=== PATIENT | female | born 1940 | race Caucasian/White ===

== ENCOUNTER → 2019-12-19 | Outpatient (CLI) | payer OTHER ==
[~2019-12-19] MED LIST: ANTIHISTAMINE PO; HYDCHL25 PO; LEVSOD75 PO; LISINOPRIL PO; LORA10ER PO; OMEP20ER PO; PRAV20 PO
== END | disposition home or self-care (01) ==
LOC: LAB 11:59 → LAB SHORT 11:59
DX: L08.0 Pyoderma (principal)
CPT/HCPCS: 87070; 87205

== ENCOUNTER 2020-06-13 10:15 | Emergency (ER) | payer OTHER ==
[~2020-06-13] VITALS: Ht 157.5 cm; Wt 71.7 kg
[2020-06-13 12:42] LABS: BASOPHILS ABSOLUTE AUTO 0.06 K/mm3 (0.00-0.23); BASOPHILS PERCENT AUTO 1 % (0-2); EOSINOPHILS ABSOLUTE AUTO 0.02 K/mm3 (0.00-0.68); EOSINOPHILS PERCENT AUTO 0 % (0-6); Hematocrit 39.9 % (33.0-51.0); Hemoglobin 13.5 g/dL (11.5-16.0); IMMATURE GRAN ABSOLUTE AUTO 0.02 K/mm3 (0.00-0.10); IMMATURE GRAN PERCENT AUTO 0 % (0-1); LYMPHOCYTES ABSOLUTE AUTO 1.75 K/mm3 (0.84-5.20); LYMPHOCYTES PERCENT AUTO 27 % (21-46); MONOCYTES ABSOLUTE AUTO 0.44 K/mm3 (0.16-1.47); MONOCYTES PERCENT AUTO 7 % (4-13); Mean Corpuscular HGB 33.5 pg (26.0-34.0); Mean Corpuscular HGB Conc 33.8 g/dL (31.5-36.5); Mean Corpuscular Volume 99 fL (80-100); NEUTROPHILS ABSOLUTE AUTO 4.26 K/mm3 (1.96-9.15); NEUTROPHILS PERCENT AUTO 65 % (41-73); Platelet Count 303 K/mm3 (150-400); RDW Coefficient Variation 11.5 % (11.7-14.2); RDW Standard Deviation 41.9 fL (35.1-46.3); Red Blood Cell Count 4.03 M/mm3 (3.80-5.20); White Blood Cell Count 6.55 K/mm3 (4.00-11.30)
[2020-06-13 12:59] LABS: Alanine Aminotransfer (ALT/SGP 24 U/L (12-78); Albumin, Blood 4.2 g/dL (3.4-5.0); Alk Phos 70 U/L (50-136); Anion Gap 6 mmol/L (6-16); Aspartate Aminotrans (AST/SGOT 22 U/L (12-37); Bilirubin, Total 0.6 mg/dL (0.1-1.0); Blood Urea Nitrogen 15 mg/dL (8-24); Bun/Creatinine Ratio 21.1 (12.0-20.0); CO2, Blood 29 mmol/L (21-32); Calcium, Blood 9.4 mg/dL (8.5-10.1); Chloride, Blood 101 mmol/L (98-108); Creatinine, Blood 0.71 mg/dL (0.40-1.00); Globulin, Blood 4.2 g/dL (2.2-4.0); Glomerular Filtration Rate >60 (60-); Glucose, Blood 95 mg/dL (70-99); Potassium, Blood 3.9 mmol/L (3.5-5.5); Sodium, Blood 136 mmol/L (136-145); Total Protein, Blood 8.4 g/dL (6.4-8.2)
[2020-06-13] MEDS ORDERED: MINOCYCLINE HC100 M2 PO (13:30)
== END 2020-06-13 13:55 | disposition home or self-care (01) ==
LOC: ER 10:15
PROVIDERS: Emergency Medicine
DX: L03.811 Cellulitis of head [any part, except face] (principal); I10 Essential (primary) hypertension; Z88.0 Allergy status to penicillin; Z79.899 Other long term (current) drug therapy
CPT/HCPCS: 36415; 70450; 80053; 85025; 87070; 87075; 87077; 87186; 87205; 99284-25; A9270

== ENCOUNTER → 2020-06-28 | Outpatient (CLI) | payer OTHER ==
[~2020-06-28] MED LIST changes: +MINOCYCLINE HC100 M2 PO
== END | disposition home or self-care (01) ==
LOC: LAB SHORT 12:50
DX: C44.42 Squamous cell carcinoma of skin of scalp and neck (principal)
CPT/HCPCS: 88305

== ENCOUNTER 2022-04-25 07:38 | Day surgery (SDC) | payer OTHER ==
[~2022-04-25 07:38] MED LIST changes: +LOSARTAN-HCTZ1 EAC5 PO
== END 2022-04-25 22:54 | disposition home or self-care (01) ==
LOC: WOUND 07:38
DX: C44.41 Basal cell carcinoma of skin of scalp and neck (principal); S01.00XA Unspecified open wound of scalp, initial encounter; X58.XXXA Exposure to other specified factors, initial encounter
CPT/HCPCS: G0463

== ENCOUNTER 2022-05-02 01:10 | Day surgery (SDC) | payer OTHER | END 2022-05-03 22:51 | disposition home or self-care (01) | LOC: WOUND 01:10 | DX: S01.00XA Unspecified open wound of scalp, initial encounter (principal); C44.41 Basal cell carcinoma of skin of scalp and neck; I10 Essential (primary) hypertension; E03.9 Hypothyroidism, unspecified | CPT/HCPCS: A9270; G0463 ==

== ENCOUNTER 2022-05-09 00:08 | Day surgery (SDC) | payer OTHER | END 2022-05-09 23:56 | disposition home or self-care (01) | LOC: WOUND 00:08 | DX: S01.00XA Unspecified open wound of scalp, initial encounter (principal); C44.41 Basal cell carcinoma of skin of scalp and neck; X58.XXXA Exposure to other specified factors, initial encounter | CPT/HCPCS: G0463 ==

== ENCOUNTER 2022-05-23 00:23 | Day surgery (SDC) | payer OTHER | END 2022-05-23 23:18 | disposition home or self-care (01) | LOC: WOUND 00:23 | DX: C44.41 Basal cell carcinoma of skin of scalp and neck (principal); S01.00XD Unspecified open wound of scalp, subsequent encounter; X58.XXXD Exposure to other specified factors, subsequent encounter; I10 Essential (primary) hypertension; E03.9 Hypothyroidism, unspecified | CPT/HCPCS: G0463 ==

== ENCOUNTER 2022-06-03 00:55 | Day surgery (SDC) | payer OTHER | END 2022-06-03 22:46 | disposition home or self-care (01) | LOC: WOUND 00:55 | DX: C44.41 Basal cell carcinoma of skin of scalp and neck (principal); S01.00XD Unspecified open wound of scalp, subsequent encounter; X58.XXXD Exposure to other specified factors, subsequent encounter | CPT/HCPCS: G0463 ==

== ENCOUNTER 2022-06-26 01:47 | Day surgery (SDC) | payer OTHER | END 2022-06-26 22:53 | disposition home or self-care (01) | LOC: WOUND 01:47 | DX: T81.89XA Other complications of procedures, not elsewhere classified, initial encounter (principal); L59.8 Other specified disorders of the skin and subcutaneous tissue related to radiation; C44.42 Squamous cell carcinoma of skin of scalp and neck | CPT/HCPCS: G0463 ==

== ENCOUNTER 2022-07-10 01:01 | Day surgery (SDC) | payer OTHER | END 2022-07-10 22:51 | disposition home or self-care (01) | LOC: WOUND 01:01 | DX: S01.00XD Unspecified open wound of scalp, subsequent encounter (principal); X58.XXXD Exposure to other specified factors, subsequent encounter; L59.8 Other specified disorders of the skin and subcutaneous tissue related to radiation; C44.42 Squamous cell carcinoma of skin of scalp and neck; I10 Essential (primary) hypertension; E03.9 Hypothyroidism, unspecified | CPT/HCPCS: G0463 ==

== ENCOUNTER 2022-07-14 00:27 | Day surgery (SDC) | payer OTHER | END 2022-07-14 23:04 | disposition home or self-care (01) | LOC: HBO 00:27 | DX: L59.8 Other specified disorders of the skin and subcutaneous tissue related to radiation (principal); S01.00XD Unspecified open wound of scalp, subsequent encounter; X58.XXXD Exposure to other specified factors, subsequent encounter; C44.42 Squamous cell carcinoma of skin of scalp and neck | CPT/HCPCS: G0277 ==

== ENCOUNTER 2022-07-16 02:16 | Day surgery (SDC) | payer OTHER | END 2022-07-16 23:33 | disposition home or self-care (01) | LOC: HBO 02:16 | DX: L59.8 Other specified disorders of the skin and subcutaneous tissue related to radiation (principal); S01.00XD Unspecified open wound of scalp, subsequent encounter; X58.XXXD Exposure to other specified factors, subsequent encounter; C44.42 Squamous cell carcinoma of skin of scalp and neck | CPT/HCPCS: G0277 ==

== ENCOUNTER 2022-07-17 02:33 | Day surgery (SDC) | payer OTHER | END 2022-07-17 23:23 | disposition home or self-care (01) | LOC: HBO 02:33 | DX: L59.8 Other specified disorders of the skin and subcutaneous tissue related to radiation (principal); S01.00XD Unspecified open wound of scalp, subsequent encounter; C44.42 Squamous cell carcinoma of skin of scalp and neck; X58.XXXD Exposure to other specified factors, subsequent encounter | CPT/HCPCS: G0277 ==

== ENCOUNTER 2022-07-17 02:42 | Day surgery (SDC) | payer OTHER | END 2022-07-17 23:23 | disposition home or self-care (01) | LOC: WOUND 02:42 | DX: L59.8 Other specified disorders of the skin and subcutaneous tissue related to radiation (principal); S01.00XD Unspecified open wound of scalp, subsequent encounter; C44.42 Squamous cell carcinoma of skin of scalp and neck | CPT/HCPCS: G0463 ==

== ENCOUNTER 2022-07-18 03:25 | Day surgery (SDC) | payer OTHER | END 2022-07-18 22:43 | disposition home or self-care (01) | LOC: HBO 03:25 | DX: L59.8 Other specified disorders of the skin and subcutaneous tissue related to radiation (principal); S01.00XD Unspecified open wound of scalp, subsequent encounter; C44.42 Squamous cell carcinoma of skin of scalp and neck; X58.XXXD Exposure to other specified factors, subsequent encounter | CPT/HCPCS: G0277 ==

== ENCOUNTER 2022-07-21 08:00 | Day surgery (SDC) | payer OTHER | END 2022-07-21 23:59 | disposition home or self-care (01) | LOC: HBO 08:00 | DX: L59.8 Other specified disorders of the skin and subcutaneous tissue related to radiation (principal); S01.00XD Unspecified open wound of scalp, subsequent encounter; C44.42 Squamous cell carcinoma of skin of scalp and neck; X58.XXXD Exposure to other specified factors, subsequent encounter | CPT/HCPCS: G0277 ==

== ENCOUNTER 2022-07-22 00:34 | Day surgery (SDC) | payer OTHER | END 2022-07-22 22:44 | disposition home or self-care (01) | LOC: HBO 00:34 | DX: L59.8 Other specified disorders of the skin and subcutaneous tissue related to radiation (principal); S01.00XD Unspecified open wound of scalp, subsequent encounter; X58.XXXD Exposure to other specified factors, subsequent encounter; C44.42 Squamous cell carcinoma of skin of scalp and neck | CPT/HCPCS: G0277 ==

== ENCOUNTER 2022-07-23 03:07 | Day surgery (SDC) | payer OTHER | END 2022-07-23 22:48 | disposition home or self-care (01) | LOC: HBO 03:07 | DX: L59.8 Other specified disorders of the skin and subcutaneous tissue related to radiation (principal); S01.00XD Unspecified open wound of scalp, subsequent encounter; X58.XXXD Exposure to other specified factors, subsequent encounter; C44.42 Squamous cell carcinoma of skin of scalp and neck | CPT/HCPCS: G0277 ==

== ENCOUNTER 2022-07-24 00:31 | Day surgery (SDC) | payer OTHER | END 2022-07-24 22:56 | disposition home or self-care (01) | LOC: HBO 00:31 | DX: L59.8 Other specified disorders of the skin and subcutaneous tissue related to radiation (principal); S01.00XD Unspecified open wound of scalp, subsequent encounter; X58.XXXD Exposure to other specified factors, subsequent encounter; C44.42 Squamous cell carcinoma of skin of scalp and neck | CPT/HCPCS: G0277; G0463 ==

== ENCOUNTER 2022-07-24 01:33 | Day surgery (SDC) | payer OTHER | END 2022-07-24 22:56 | disposition home or self-care (01) | LOC: WOUND 01:33 | DX: L59.8 Other specified disorders of the skin and subcutaneous tissue related to radiation (principal); S01.00XD Unspecified open wound of scalp, subsequent encounter; X58.XXXD Exposure to other specified factors, subsequent encounter; C44.42 Squamous cell carcinoma of skin of scalp and neck | CPT/HCPCS: G0463 ==

== ENCOUNTER 2022-07-28 02:09 | Day surgery (SDC) | payer OTHER | END 2022-07-28 22:53 | disposition home or self-care (01) | LOC: HBO 02:09 | DX: S01.00XD Unspecified open wound of scalp, subsequent encounter (principal); L59.8 Other specified disorders of the skin and subcutaneous tissue related to radiation; C44.42 Squamous cell carcinoma of skin of scalp and neck | CPT/HCPCS: G0277 ==

== ENCOUNTER 2022-07-29 01:55 | Day surgery (SDC) | payer OTHER | END 2022-07-29 22:56 | disposition home or self-care (01) | LOC: HBO 01:55 | DX: L59.8 Other specified disorders of the skin and subcutaneous tissue related to radiation (principal); S01.00XD Unspecified open wound of scalp, subsequent encounter; C44.42 Squamous cell carcinoma of skin of scalp and neck | CPT/HCPCS: G0277 ==

== ENCOUNTER 2022-07-30 05:39 | Day surgery (SDC) | payer OTHER | END 2022-07-30 23:09 | disposition home or self-care (01) | LOC: HBO 05:39 | PROC: 5A05221 Extracorporeal Hyperbaric Oxygenation, Continuous (ICD-10-PCS; principal; 2022-07-30) | DX: L59.8 Other specified disorders of the skin and subcutaneous tissue related to radiation (principal); S01.00XD Unspecified open wound of scalp, subsequent encounter; C44.42 Squamous cell carcinoma of skin of scalp and neck | CPT/HCPCS: G0277 ==

== ENCOUNTER 2022-07-31 01:29 | Day surgery (SDC) | payer OTHER | END 2022-07-31 23:07 | disposition home or self-care (01) | LOC: HBO 01:29 | DX: L59.8 Other specified disorders of the skin and subcutaneous tissue related to radiation (principal); S01.00XD Unspecified open wound of scalp, subsequent encounter; C44.42 Squamous cell carcinoma of skin of scalp and neck | CPT/HCPCS: G0277 ==

== ENCOUNTER 2022-08-01 00:39 | Day surgery (SDC) | payer OTHER | END 2022-08-02 22:42 | disposition home or self-care (01) | LOC: HBO 00:39 | DX: L59.8 Other specified disorders of the skin and subcutaneous tissue related to radiation (principal); S01.00XD Unspecified open wound of scalp, subsequent encounter; C44.42 Squamous cell carcinoma of skin of scalp and neck | CPT/HCPCS: G0277 ==

== ENCOUNTER 2022-08-05 02:36 | Day surgery (SDC) | payer OTHER | END 2022-08-05 23:06 | disposition home or self-care (01) | LOC: HBO 02:36 | DX: L59.8 Other specified disorders of the skin and subcutaneous tissue related to radiation (principal); S01.00XD Unspecified open wound of scalp, subsequent encounter; C44.42 Squamous cell carcinoma of skin of scalp and neck; X58.XXXD Exposure to other specified factors, subsequent encounter | CPT/HCPCS: G0277 ==

== ENCOUNTER 2022-08-06 00:21 | Day surgery (SDC) | payer OTHER | END 2022-08-06 23:11 | disposition home or self-care (01) | LOC: HBO 00:21 | DX: L59.8 Other specified disorders of the skin and subcutaneous tissue related to radiation (principal); S01.00XD Unspecified open wound of scalp, subsequent encounter; X58.XXXD Exposure to other specified factors, subsequent encounter; C44.42 Squamous cell carcinoma of skin of scalp and neck | CPT/HCPCS: G0277 ==

== ENCOUNTER 2022-08-06 00:32 | Day surgery (SDC) | payer OTHER | END 2022-08-06 23:11 | disposition home or self-care (01) | LOC: WOUND 00:32 | DX: L59.8 Other specified disorders of the skin and subcutaneous tissue related to radiation (principal); C44.42 Squamous cell carcinoma of skin of scalp and neck; S01.00XD Unspecified open wound of scalp, subsequent encounter; X58.XXXD Exposure to other specified factors, subsequent encounter | CPT/HCPCS: G0463 ==

== ENCOUNTER 2022-08-07 03:47 | Day surgery (SDC) | payer OTHER | END 2022-08-07 22:45 | disposition home or self-care (01) | LOC: HBO 03:47 | DX: L59.8 Other specified disorders of the skin and subcutaneous tissue related to radiation (principal); S01.00XD Unspecified open wound of scalp, subsequent encounter; X58.XXXD Exposure to other specified factors, subsequent encounter; C44.42 Squamous cell carcinoma of skin of scalp and neck | CPT/HCPCS: G0277 ==

== ENCOUNTER 2022-08-08 01:01 | Day surgery (SDC) | payer OTHER | END 2022-08-10 22:45 | disposition home or self-care (01) | LOC: HBO 01:01 | DX: L59.8 Other specified disorders of the skin and subcutaneous tissue related to radiation (principal); S01.00XD Unspecified open wound of scalp, subsequent encounter; X58.XXXD Exposure to other specified factors, subsequent encounter; C44.42 Squamous cell carcinoma of skin of scalp and neck | CPT/HCPCS: G0277 ==

== ENCOUNTER 2022-08-11 01:10 | Day surgery (SDC) | payer OTHER | END 2022-08-11 22:59 | disposition home or self-care (01) | LOC: HBO 01:10 | DX: L59.8 Other specified disorders of the skin and subcutaneous tissue related to radiation (principal); S01.00XD Unspecified open wound of scalp, subsequent encounter; C44.42 Squamous cell carcinoma of skin of scalp and neck; X58.XXXD Exposure to other specified factors, subsequent encounter | CPT/HCPCS: G0277 ==

== ENCOUNTER 2022-08-12 01:47 | Day surgery (SDC) | payer OTHER | END 2022-08-12 22:49 | disposition home or self-care (01) | LOC: HBO 01:47 | DX: L59.8 Other specified disorders of the skin and subcutaneous tissue related to radiation (principal); S01.00XD Unspecified open wound of scalp, subsequent encounter; C44.42 Squamous cell carcinoma of skin of scalp and neck | CPT/HCPCS: G0277 ==

== ENCOUNTER 2022-08-13 00:39 | Day surgery (SDC) | payer OTHER | END 2022-08-13 23:04 | disposition home or self-care (01) | LOC: WOUND 00:39 | DX: S01.00XD Unspecified open wound of scalp, subsequent encounter (principal); L59.8 Other specified disorders of the skin and subcutaneous tissue related to radiation; C44.42 Squamous cell carcinoma of skin of scalp and neck; X58.XXXD Exposure to other specified factors, subsequent encounter | CPT/HCPCS: G0463 ==

== ENCOUNTER 2022-08-13 00:41 | Day surgery (SDC) | payer OTHER | END 2022-08-13 23:04 | disposition home or self-care (01) | LOC: HBO 00:41 | DX: L59.8 Other specified disorders of the skin and subcutaneous tissue related to radiation (principal); S01.00XD Unspecified open wound of scalp, subsequent encounter; C44.42 Squamous cell carcinoma of skin of scalp and neck; X58.XXXD Exposure to other specified factors, subsequent encounter | CPT/HCPCS: G0277 ==

== ENCOUNTER 2022-08-14 02:37 | Day surgery (SDC) | payer OTHER | END 2022-08-14 23:38 | disposition home or self-care (01) | LOC: HBO 02:37 | PROC: 5A05121 Extracorporeal Hyperbaric Oxygenation, Intermittent (ICD-10-PCS; principal; 2022-08-14) | DX: L59.8 Other specified disorders of the skin and subcutaneous tissue related to radiation (principal); C44.42 Squamous cell carcinoma of skin of scalp and neck; S01.00XD Unspecified open wound of scalp, subsequent encounter | CPT/HCPCS: G0277 ==

== ENCOUNTER 2022-08-15 02:45 | Day surgery (SDC) | payer OTHER | END 2022-08-17 22:57 | disposition home or self-care (01) | LOC: HBO 02:45 | DX: L59.8 Other specified disorders of the skin and subcutaneous tissue related to radiation (principal); S01.00XD Unspecified open wound of scalp, subsequent encounter; X58.XXXD Exposure to other specified factors, subsequent encounter; C44.42 Squamous cell carcinoma of skin of scalp and neck | CPT/HCPCS: G0277 ==

== ENCOUNTER 2022-08-20 03:39 | Day surgery (SDC) | payer OTHER | END 2022-08-20 23:08 | disposition home or self-care (01) | LOC: HBO 03:39 | DX: L59.8 Other specified disorders of the skin and subcutaneous tissue related to radiation (principal); S01.00XD Unspecified open wound of scalp, subsequent encounter; X58.XXXD Exposure to other specified factors, subsequent encounter; C44.42 Squamous cell carcinoma of skin of scalp and neck | CPT/HCPCS: G0277 ==

== ENCOUNTER 2022-08-20 03:42 | Day surgery (SDC) | payer OTHER | END 2022-08-20 23:08 | disposition home or self-care (01) | LOC: WOUND 03:42 | DX: L59.8 Other specified disorders of the skin and subcutaneous tissue related to radiation (principal); S01.00XD Unspecified open wound of scalp, subsequent encounter; X58.XXXD Exposure to other specified factors, subsequent encounter; C44.42 Squamous cell carcinoma of skin of scalp and neck; I10 Essential (primary) hypertension; E03.9 Hypothyroidism, unspecified | CPT/HCPCS: G0463 ==

== ENCOUNTER 2022-08-26 03:18 | Day surgery (SDC) | payer OTHER | END 2022-08-26 22:42 | disposition home or self-care (01) | LOC: HBO 03:18 | DX: L59.8 Other specified disorders of the skin and subcutaneous tissue related to radiation (principal); S01.00XD Unspecified open wound of scalp, subsequent encounter; C44.42 Squamous cell carcinoma of skin of scalp and neck | CPT/HCPCS: G0277 ==

== ENCOUNTER 2022-08-27 03:13 | Day surgery (SDC) | payer OTHER | END 2022-08-27 22:48 | disposition home or self-care (01) | LOC: HBO 03:13 | DX: L59.8 Other specified disorders of the skin and subcutaneous tissue related to radiation (principal); S01.00XD Unspecified open wound of scalp, subsequent encounter; C44.42 Squamous cell carcinoma of skin of scalp and neck | CPT/HCPCS: G0277 ==

== ENCOUNTER 2022-08-28 03:26 | Day surgery (SDC) | payer OTHER | END 2022-08-28 22:44 | disposition home or self-care (01) | LOC: HBO 03:26 | DX: L59.8 Other specified disorders of the skin and subcutaneous tissue related to radiation (principal); S01.00XD Unspecified open wound of scalp, subsequent encounter; X58.XXXD Exposure to other specified factors, subsequent encounter; C44.42 Squamous cell carcinoma of skin of scalp and neck | CPT/HCPCS: G0277 ==

== ENCOUNTER 2022-08-28 07:45 | Day surgery (SDC) | payer OTHER | END 2022-08-28 22:44 | disposition home or self-care (01) | LOC: WOUND 07:45 | DX: L59.8 Other specified disorders of the skin and subcutaneous tissue related to radiation (principal); S01.00XD Unspecified open wound of scalp, subsequent encounter; X58.XXXD Exposure to other specified factors, subsequent encounter; C44.42 Squamous cell carcinoma of skin of scalp and neck | CPT/HCPCS: G0463 ==

== ENCOUNTER → 2022-08-29 | Day surgery (SDC) | payer OTHER | LOC: HBO 03:23 | DX: L59.8 Other specified disorders of the skin and subcutaneous tissue related to radiation (principal); S01.00XD Unspecified open wound of scalp, subsequent encounter; C44.42 Squamous cell carcinoma of skin of scalp and neck; X58.XXXD Exposure to other specified factors, subsequent encounter | CPT/HCPCS: G0277 ==

== ENCOUNTER → 2022-09-01 | Day surgery (SDC) | payer OTHER | LOC: HBO 02:02 | DX: L59.8 Other specified disorders of the skin and subcutaneous tissue related to radiation (principal); S01.00XD Unspecified open wound of scalp, subsequent encounter; C44.42 Squamous cell carcinoma of skin of scalp and neck; X58.XXXD Exposure to other specified factors, subsequent encounter | CPT/HCPCS: G0277 ==

== ENCOUNTER → 2022-09-02 | Day surgery (SDC) | payer OTHER | LOC: HBO 00:57 | DX: L59.8 Other specified disorders of the skin and subcutaneous tissue related to radiation (principal); S01.00XD Unspecified open wound of scalp, subsequent encounter; C44.42 Squamous cell carcinoma of skin of scalp and neck | CPT/HCPCS: G0277 ==

== ENCOUNTER → 2022-09-03 | Day surgery (SDC) | payer OTHER | LOC: HBO 03:08 | DX: L59.8 Other specified disorders of the skin and subcutaneous tissue related to radiation (principal); S01.00XD Unspecified open wound of scalp, subsequent encounter; C44.42 Squamous cell carcinoma of skin of scalp and neck; X58.XXXD Exposure to other specified factors, subsequent encounter | CPT/HCPCS: G0277 ==

== ENCOUNTER 2022-09-04 02:56 | Day surgery (SDC) | payer OTHER | END 2022-09-05 23:09 | disposition home or self-care (01) | LOC: HBO 02:56 | DX: L59.8 Other specified disorders of the skin and subcutaneous tissue related to radiation (principal); S01.00XD Unspecified open wound of scalp, subsequent encounter; X58.XXXD Exposure to other specified factors, subsequent encounter; C44.42 Squamous cell carcinoma of skin of scalp and neck | CPT/HCPCS: G0277 ==

== ENCOUNTER 2022-09-05 01:04 | Day surgery (SDC) | payer OTHER | END 2022-09-05 23:10 | disposition home or self-care (01) | LOC: HBO 01:04 | DX: S01.00XD Unspecified open wound of scalp, subsequent encounter (principal); L59.8 Other specified disorders of the skin and subcutaneous tissue related to radiation; C44.42 Squamous cell carcinoma of skin of scalp and neck | CPT/HCPCS: G0277 ==

== ENCOUNTER 2022-09-16 02:14 | Day surgery (SDC) | payer OTHER | END 2022-09-16 22:41 | disposition home or self-care (01) | LOC: HBO 02:14 | DX: L59.8 Other specified disorders of the skin and subcutaneous tissue related to radiation (principal); S01.00XD Unspecified open wound of scalp, subsequent encounter; C44.42 Squamous cell carcinoma of skin of scalp and neck | CPT/HCPCS: G0277 ==

== ENCOUNTER 2022-09-18 02:34 | Day surgery (SDC) | payer OTHER | END 2022-09-18 22:48 | disposition home or self-care (01) | LOC: WOUND 02:34 | DX: T81.31XA Disruption of external operation (surgical) wound, not elsewhere classified, initial encounter (principal); C44.42 Squamous cell carcinoma of skin of scalp and neck; I10 Essential (primary) hypertension; E03.9 Hypothyroidism, unspecified; Y83.8 Other surgical procedures as the cause of abnormal reaction of the patient, or of later complication, without mention of misadventure at the time of the procedure ==

== ENCOUNTER 2022-09-24 04:29 | Day surgery (SDC) | payer OTHER | END 2022-09-24 22:46 | disposition home or self-care (01) | LOC: HBO 04:29 | DX: L59.8 Other specified disorders of the skin and subcutaneous tissue related to radiation (principal); S01.00XD Unspecified open wound of scalp, subsequent encounter; C44.42 Squamous cell carcinoma of skin of scalp and neck; X58.XXXD Exposure to other specified factors, subsequent encounter | CPT/HCPCS: G0277 ==

== ENCOUNTER 2022-09-25 01:30 | Day surgery (SDC) | payer OTHER | END 2022-09-25 23:02 | disposition home or self-care (01) | LOC: WOUND 01:30 | DX: C44.42 Squamous cell carcinoma of skin of scalp and neck (principal); S01.00XD Unspecified open wound of scalp, subsequent encounter; L59.8 Other specified disorders of the skin and subcutaneous tissue related to radiation; X58.XXXD Exposure to other specified factors, subsequent encounter | CPT/HCPCS: G0463 ==

== ENCOUNTER 2022-09-25 01:31 | Day surgery (SDC) | payer OTHER | END 2022-09-25 23:05 | disposition home or self-care (01) | LOC: HBO 01:31 | DX: L59.8 Other specified disorders of the skin and subcutaneous tissue related to radiation (principal); S01.00XD Unspecified open wound of scalp, subsequent encounter; C44.42 Squamous cell carcinoma of skin of scalp and neck; X58.XXXD Exposure to other specified factors, subsequent encounter | CPT/HCPCS: G0277; G0463 ==

== ENCOUNTER 2022-09-26 00:55 | Day surgery (SDC) | payer OTHER | END 2022-09-26 22:44 | disposition home or self-care (01) | LOC: HBO 00:55 | DX: L59.8 Other specified disorders of the skin and subcutaneous tissue related to radiation (principal); S01.00XD Unspecified open wound of scalp, subsequent encounter; C44.42 Squamous cell carcinoma of skin of scalp and neck; X58.XXXD Exposure to other specified factors, subsequent encounter | CPT/HCPCS: G0277 ==

== ENCOUNTER 2022-09-29 00:37 | Day surgery (SDC) | payer OTHER | END 2022-09-29 23:05 | disposition home or self-care (01) | LOC: HBO 00:37 → WOUND 13:38 → HBO 13:52 | DX: L59.8 Other specified disorders of the skin and subcutaneous tissue related to radiation (principal); S01.00XD Unspecified open wound of scalp, subsequent encounter; C44.42 Squamous cell carcinoma of skin of scalp and neck; X58.XXXD Exposure to other specified factors, subsequent encounter | CPT/HCPCS: G0277 ==

== ENCOUNTER 2022-09-30 03:02 | Day surgery (SDC) | payer OTHER | END 2022-09-30 22:50 | disposition home or self-care (01) | LOC: HBO 03:02 | DX: L59.8 Other specified disorders of the skin and subcutaneous tissue related to radiation (principal); S01.00XD Unspecified open wound of scalp, subsequent encounter; C44.42 Squamous cell carcinoma of skin of scalp and neck | CPT/HCPCS: G0277 ==

== ENCOUNTER 2022-10-06 00:23 | Day surgery (SDC) | payer OTHER | END 2022-10-06 23:12 | disposition home or self-care (01) | LOC: HBO 00:23 | DX: L59.8 Other specified disorders of the skin and subcutaneous tissue related to radiation (principal); S01.00XD Unspecified open wound of scalp, subsequent encounter; C44.42 Squamous cell carcinoma of skin of scalp and neck; X58.XXXD Exposure to other specified factors, subsequent encounter | CPT/HCPCS: G0277 ==

== ENCOUNTER 2022-10-08 04:04 | Day surgery (SDC) | payer OTHER | END 2022-10-08 23:07 | disposition home or self-care (01) | LOC: HBO 04:04 | DX: L59.8 Other specified disorders of the skin and subcutaneous tissue related to radiation (principal); S01.00XD Unspecified open wound of scalp, subsequent encounter; C44.42 Squamous cell carcinoma of skin of scalp and neck | CPT/HCPCS: G0277 ==

== ENCOUNTER 2022-10-09 03:06 | Day surgery (SDC) | payer OTHER | END 2022-10-09 22:52 | disposition home or self-care (01) | LOC: WOUND 03:06 | DX: L59.8 Other specified disorders of the skin and subcutaneous tissue related to radiation (principal); S01.00XD Unspecified open wound of scalp, subsequent encounter; X58.XXXD Exposure to other specified factors, subsequent encounter; C44.42 Squamous cell carcinoma of skin of scalp and neck | CPT/HCPCS: G0463 ==

== ENCOUNTER 2022-10-09 03:07 | Day surgery (SDC) | payer OTHER | END 2022-10-09 22:52 | disposition home or self-care (01) | LOC: HBO 03:07 | DX: L59.8 Other specified disorders of the skin and subcutaneous tissue related to radiation (principal); S01.00XD Unspecified open wound of scalp, subsequent encounter; X58.XXXD Exposure to other specified factors, subsequent encounter; C44.42 Squamous cell carcinoma of skin of scalp and neck | CPT/HCPCS: G0277 ==

== ENCOUNTER 2022-10-14 02:56 | Day surgery (SDC) | payer OTHER | END 2022-10-14 23:21 | disposition home or self-care (01) | LOC: HBO 02:56 | DX: L59.8 Other specified disorders of the skin and subcutaneous tissue related to radiation (principal); S01.00XD Unspecified open wound of scalp, subsequent encounter; C44.42 Squamous cell carcinoma of skin of scalp and neck | CPT/HCPCS: G0277 ==

== ENCOUNTER 2022-10-15 01:18 | Day surgery (SDC) | payer OTHER | END 2022-10-15 23:19 | disposition home or self-care (01) | LOC: HBO 01:18 | DX: L59.8 Other specified disorders of the skin and subcutaneous tissue related to radiation (principal); S01.00XD Unspecified open wound of scalp, subsequent encounter; C44.42 Squamous cell carcinoma of skin of scalp and neck | CPT/HCPCS: G0277 ==

== ENCOUNTER 2022-10-16 04:05 | Day surgery (SDC) | payer OTHER | END 2022-10-16 23:04 | disposition home or self-care (01) | LOC: HBO 04:05 | DX: L59.8 Other specified disorders of the skin and subcutaneous tissue related to radiation (principal); S01.00XD Unspecified open wound of scalp, subsequent encounter; C44.42 Squamous cell carcinoma of skin of scalp and neck | CPT/HCPCS: G0277 ==

== ENCOUNTER 2022-10-17 03:08 | Day surgery (SDC) | payer OTHER | END 2022-10-17 22:50 | disposition home or self-care (01) | LOC: HBO 03:08 | DX: L59.8 Other specified disorders of the skin and subcutaneous tissue related to radiation (principal); S01.00XD Unspecified open wound of scalp, subsequent encounter; C44.42 Squamous cell carcinoma of skin of scalp and neck | CPT/HCPCS: G0277 ==

== ENCOUNTER 2022-10-20 02:14 | Day surgery (SDC) | payer OTHER | END 2022-10-20 23:02 | disposition home or self-care (01) | LOC: HBO 02:14 | DX: L59.8 Other specified disorders of the skin and subcutaneous tissue related to radiation (principal); S01.00XD Unspecified open wound of scalp, subsequent encounter; X58.XXXD Exposure to other specified factors, subsequent encounter; C44.42 Squamous cell carcinoma of skin of scalp and neck; I10 Essential (primary) hypertension; E03.9 Hypothyroidism, unspecified | CPT/HCPCS: G0277 ==

== ENCOUNTER 2022-10-20 02:16 | Day surgery (SDC) | payer OTHER | END 2022-10-20 23:02 | disposition home or self-care (01) | LOC: WOUND 02:16 | DX: L59.8 Other specified disorders of the skin and subcutaneous tissue related to radiation (principal); S01.00XD Unspecified open wound of scalp, subsequent encounter; X58.XXXD Exposure to other specified factors, subsequent encounter; C44.42 Squamous cell carcinoma of skin of scalp and neck; I10 Essential (primary) hypertension; E03.9 Hypothyroidism, unspecified | CPT/HCPCS: G0463 ==

== ENCOUNTER 2022-10-22 02:11 | Day surgery (SDC) | payer OTHER | END 2022-10-22 22:57 | disposition home or self-care (01) | LOC: HBO 02:11 | DX: L59.8 Other specified disorders of the skin and subcutaneous tissue related to radiation (principal); S01.00XD Unspecified open wound of scalp, subsequent encounter; X58.XXXD Exposure to other specified factors, subsequent encounter; C44.42 Squamous cell carcinoma of skin of scalp and neck | CPT/HCPCS: G0277 ==

== ENCOUNTER 2022-10-23 02:33 | Day surgery (SDC) | payer OTHER | END 2022-10-23 23:43 | disposition home or self-care (01) | LOC: HBO 02:33 | DX: L59.8 Other specified disorders of the skin and subcutaneous tissue related to radiation (principal); S01.00XD Unspecified open wound of scalp, subsequent encounter; X58.XXXD Exposure to other specified factors, subsequent encounter; C44.42 Squamous cell carcinoma of skin of scalp and neck | CPT/HCPCS: G0277 ==

== ENCOUNTER 2022-10-24 01:13 | Day surgery (SDC) | payer OTHER | END 2022-10-24 23:15 | disposition home or self-care (01) | LOC: HBO 01:13 | DX: L59.8 Other specified disorders of the skin and subcutaneous tissue related to radiation (principal); S01.00XD Unspecified open wound of scalp, subsequent encounter; C44.42 Squamous cell carcinoma of skin of scalp and neck | CPT/HCPCS: G0277 ==

== ENCOUNTER 2022-10-27 01:59 | Day surgery (SDC) | payer OTHER | END 2022-10-27 22:44 | disposition home or self-care (01) | LOC: HBO 01:59 | DX: L59.8 Other specified disorders of the skin and subcutaneous tissue related to radiation (principal); S01.00XD Unspecified open wound of scalp, subsequent encounter; C44.42 Squamous cell carcinoma of skin of scalp and neck | CPT/HCPCS: G0277 ==

== ENCOUNTER 2022-10-28 01:55 | Day surgery (SDC) | payer OTHER | END 2022-10-28 22:43 | disposition home or self-care (01) | LOC: HBO 01:55 | DX: L59.8 Other specified disorders of the skin and subcutaneous tissue related to radiation (principal); S01.00XD Unspecified open wound of scalp, subsequent encounter; C44.42 Squamous cell carcinoma of skin of scalp and neck | CPT/HCPCS: G0277 ==

== ENCOUNTER 2022-10-29 02:18 | Day surgery (SDC) | payer OTHER | END 2022-10-29 23:10 | disposition home or self-care (01) | LOC: HBO 02:18 | DX: L59.8 Other specified disorders of the skin and subcutaneous tissue related to radiation (principal); S01.00XD Unspecified open wound of scalp, subsequent encounter; C44.42 Squamous cell carcinoma of skin of scalp and neck | CPT/HCPCS: G0277 ==

== ENCOUNTER 2022-10-30 01:06 | Day surgery (SDC) | payer OTHER | END 2022-10-30 23:09 | disposition home or self-care (01) | LOC: HBO 01:06 | DX: L59.8 Other specified disorders of the skin and subcutaneous tissue related to radiation (principal); S01.00XD Unspecified open wound of scalp, subsequent encounter; X58.XXXD Exposure to other specified factors, subsequent encounter; C44.42 Squamous cell carcinoma of skin of scalp and neck | CPT/HCPCS: G0277 ==

== ENCOUNTER 2022-10-31 00:54 | Day surgery (SDC) | payer OTHER | END 2022-10-31 22:55 | disposition home or self-care (01) | LOC: HBO 00:54 | DX: L59.8 Other specified disorders of the skin and subcutaneous tissue related to radiation (principal); S01.00XD Unspecified open wound of scalp, subsequent encounter; C44.42 Squamous cell carcinoma of skin of scalp and neck | CPT/HCPCS: G0277 ==

== ENCOUNTER 2022-11-03 08:00 | Day surgery (SDC) | payer OTHER | END 2022-11-03 23:59 | disposition home or self-care (01) | LOC: HBO 08:00 | DX: L59.8 Other specified disorders of the skin and subcutaneous tissue related to radiation (principal); S01.00XD Unspecified open wound of scalp, subsequent encounter; C44.42 Squamous cell carcinoma of skin of scalp and neck | CPT/HCPCS: G0277 ==

== ENCOUNTER 2022-11-04 01:40 | Day surgery (SDC) | payer OTHER | END 2022-11-04 23:02 | disposition home or self-care (01) | LOC: HBO 01:40 | DX: L59.8 Other specified disorders of the skin and subcutaneous tissue related to radiation (principal); S01.00XD Unspecified open wound of scalp, subsequent encounter; C44.42 Squamous cell carcinoma of skin of scalp and neck | CPT/HCPCS: G0277 ==

== ENCOUNTER 2022-11-05 05:40 | Day surgery (SDC) | payer OTHER | END 2022-11-05 22:47 | disposition home or self-care (01) | LOC: HBO 05:40 | DX: L59.8 Other specified disorders of the skin and subcutaneous tissue related to radiation (principal); S01.00XD Unspecified open wound of scalp, subsequent encounter; C44.42 Squamous cell carcinoma of skin of scalp and neck | CPT/HCPCS: G0277 ==

== ENCOUNTER 2022-11-06 03:43 | Day surgery (SDC) | payer OTHER | END 2022-11-06 23:21 | disposition home or self-care (01) | LOC: HBO 03:43 | DX: L59.8 Other specified disorders of the skin and subcutaneous tissue related to radiation (principal); S01.00XD Unspecified open wound of scalp, subsequent encounter; X58.XXXD Exposure to other specified factors, subsequent encounter; C44.42 Squamous cell carcinoma of skin of scalp and neck | CPT/HCPCS: G0277 ==

== ENCOUNTER 2022-11-07 02:22 | Day surgery (SDC) | payer OTHER | END 2022-11-07 23:33 | disposition home or self-care (01) | LOC: HBO 02:22 | DX: L59.8 Other specified disorders of the skin and subcutaneous tissue related to radiation (principal); S01.00XD Unspecified open wound of scalp, subsequent encounter; C44.42 Squamous cell carcinoma of skin of scalp and neck | CPT/HCPCS: G0277 ==

== ENCOUNTER 2022-11-10 00:39 | Day surgery (SDC) | payer OTHER | END 2022-11-10 22:49 | disposition home or self-care (01) | LOC: HBO 00:39 → WOUND 13:59 → HBO 22:49 | DX: L59.8 Other specified disorders of the skin and subcutaneous tissue related to radiation (principal); S01.00XD Unspecified open wound of scalp, subsequent encounter; C44.42 Squamous cell carcinoma of skin of scalp and neck | CPT/HCPCS: G0277; G0463 ==

== ENCOUNTER 2022-11-10 00:43 | Day surgery (SDC) | payer OTHER | END 2022-11-10 22:50 | disposition home or self-care (01) | LOC: WOUND 00:43 | DX: L59.8 Other specified disorders of the skin and subcutaneous tissue related to radiation (principal); S01.00XD Unspecified open wound of scalp, subsequent encounter; C44.42 Squamous cell carcinoma of skin of scalp and neck | CPT/HCPCS: G0463 ==

== ENCOUNTER 2022-11-11 02:15 | Day surgery (SDC) | payer OTHER | END 2022-11-11 22:36 | disposition home or self-care (01) | LOC: HBO 02:15 | DX: L59.8 Other specified disorders of the skin and subcutaneous tissue related to radiation (principal); S01.00XD Unspecified open wound of scalp, subsequent encounter; C44.42 Squamous cell carcinoma of skin of scalp and neck | CPT/HCPCS: G0277 ==

== ENCOUNTER 2022-11-12 02:43 | Day surgery (SDC) | payer OTHER | END 2022-11-12 22:56 | disposition home or self-care (01) | LOC: HBO 02:43 | DX: L59.8 Other specified disorders of the skin and subcutaneous tissue related to radiation (principal); S01.00XD Unspecified open wound of scalp, subsequent encounter; C44.42 Squamous cell carcinoma of skin of scalp and neck | CPT/HCPCS: G0277 ==

== ENCOUNTER 2022-11-13 07:38 | Day surgery (SDC) | payer OTHER | END 2022-11-13 22:51 | disposition home or self-care (01) | LOC: HBO 07:38 | DX: L59.8 Other specified disorders of the skin and subcutaneous tissue related to radiation (principal); S01.00XD Unspecified open wound of scalp, subsequent encounter; C44.42 Squamous cell carcinoma of skin of scalp and neck | CPT/HCPCS: G0277 ==

== ENCOUNTER 2022-12-04 01:38 | Day surgery (SDC) | payer OTHER | END 2022-12-04 22:55 | disposition home or self-care (01) | LOC: WOUND 01:38 | DX: L59.8 Other specified disorders of the skin and subcutaneous tissue related to radiation (principal); S01.00XD Unspecified open wound of scalp, subsequent encounter; X58.XXXD Exposure to other specified factors, subsequent encounter; C44.42 Squamous cell carcinoma of skin of scalp and neck; I10 Essential (primary) hypertension; E03.9 Hypothyroidism, unspecified | CPT/HCPCS: G0463 ==

== ENCOUNTER 2023-01-08 03:21 | Day surgery (SDC) | payer OTHER | END 2023-01-08 22:45 | disposition home or self-care (01) | LOC: WOUND 03:21 | DX: S01.00XD Unspecified open wound of scalp, subsequent encounter (principal); L59.8 Other specified disorders of the skin and subcutaneous tissue related to radiation; C44.42 Squamous cell carcinoma of skin of scalp and neck | CPT/HCPCS: G0463 ==

== ENCOUNTER 2023-02-05 02:03 | Day surgery (SDC) | payer OTHER | END 2023-02-05 22:53 | disposition home or self-care (01) | LOC: WOUND 02:03 | DX: L59.8 Other specified disorders of the skin and subcutaneous tissue related to radiation (principal); S01.00XD Unspecified open wound of scalp, subsequent encounter; X58.XXXD Exposure to other specified factors, subsequent encounter; C44.42 Squamous cell carcinoma of skin of scalp and neck | CPT/HCPCS: G0463 ==

== ENCOUNTER 2023-03-12 04:51 | Day surgery (SDC) | payer OTHER | END 2023-03-12 23:09 | disposition home or self-care (01) | LOC: WOUND 04:51 | DX: L59.8 Other specified disorders of the skin and subcutaneous tissue related to radiation (principal); S01.00XD Unspecified open wound of scalp, subsequent encounter; X58.XXXD Exposure to other specified factors, subsequent encounter; C44.42 Squamous cell carcinoma of skin of scalp and neck; I10 Essential (primary) hypertension; E03.9 Hypothyroidism, unspecified | CPT/HCPCS: G0463 ==

== ENCOUNTER 2023-04-09 02:06 | Day surgery (SDC) | payer OTHER | END 2023-04-09 23:05 | disposition home or self-care (01) | LOC: WOUND 02:06 | DX: L59.8 Other specified disorders of the skin and subcutaneous tissue related to radiation (principal); S01.00XD Unspecified open wound of scalp, subsequent encounter; C44.42 Squamous cell carcinoma of skin of scalp and neck | CPT/HCPCS: G0463 ==

== ENCOUNTER 2023-05-14 03:06 | Day surgery (SDC) | payer OTHER | END 2023-05-14 22:48 | disposition home or self-care (01) | LOC: WOUND 03:06 | DX: C44.42 Squamous cell carcinoma of skin of scalp and neck (principal); L59.8 Other specified disorders of the skin and subcutaneous tissue related to radiation; S01.00XD Unspecified open wound of scalp, subsequent encounter; X58.XXXD Exposure to other specified factors, subsequent encounter | CPT/HCPCS: G0463 ==

== ENCOUNTER 2023-07-15 03:31 | Day surgery (SDC) | payer OTHER | END 2023-07-15 23:02 | disposition home or self-care (01) | LOC: WOUND 03:31 | DX: S01.00XD Unspecified open wound of scalp, subsequent encounter (principal); C44.42 Squamous cell carcinoma of skin of scalp and neck; L59.8 Other specified disorders of the skin and subcutaneous tissue related to radiation; X58.XXXD Exposure to other specified factors, subsequent encounter | CPT/HCPCS: G0463 ==

== ENCOUNTER 2023-09-16 02:58 | Day surgery (SDC) | payer OTHER | END 2023-09-16 22:52 | disposition home or self-care (01) | LOC: WOUND 02:58 | DX: L59.8 Other specified disorders of the skin and subcutaneous tissue related to radiation (principal); S01.00XD Unspecified open wound of scalp, subsequent encounter; X58.XXXD Exposure to other specified factors, subsequent encounter; C44.42 Squamous cell carcinoma of skin of scalp and neck; I10 Essential (primary) hypertension; E03.9 Hypothyroidism, unspecified | CPT/HCPCS: G0463 ==

== ENCOUNTER 2023-10-08 06:47 | Day surgery (SDC) | payer OTHER ==
[~2023-10-08] VITALS: Ht 157.5 cm; Wt 70.6 kg
[~2023-10-08 06:47] MED LIST changes: +Balanced Salt Epinephrine Irrigation Solution 500 mL IR SCH; +Lidocaine HCl/Pf 1% 5 ML VIAL ONE; +Moxifloxacin HCL 0.5 MG/0.1 ML 0.4MLSYR RIGHTEYE SCH; +NS 500 ML IV ONE; +PHENYLEPHRINE\\TROPICAMIDE\\TETRACAINE OPHTHALMIC DILATING SOLN RIGHTEYE PRN; +Povidone-Iodine 450 DROP/30 ML Solution RIGHTEYE SCH; +Triamcinolone Inj Susp 40 MG / ML 1ML Vial ONE
[2023-10-08] MEDS ORDERED: OLMESARTAN-HCT1 EAC5 PO (07:04)
[2023-10-08] MEDS ORDERED: OSTEO BI FLEX (07:05)
[2023-10-08] MEDS ORDERED: KRILL OIL (07:05)
[2023-10-08] MEDS ORDERED: CENTRUM SILVER1 EAC2 PO (07:05)
[2023-10-08] MEDS ORDERED: LORA10ER PO (07:05)
[2023-10-08] MEDS ORDERED: VITAMIN D3 (07:06)
[2023-10-08] MEDS ORDERED: Calcium Carbon500 MG (07:07)
[2023-10-08] MEDS ORDERED: NS 500 ML IV ONE (07:17)
--- NOTE | 2023-10-08 07:17 | NUR ---
10/08/23 0717 Kavita Cheema AT 0706 PLEDGET AT 0709
[2023-10-08] MEDS ORDERED: Midazolam HCl 1MG / ML 2ML Vial ONE (07:56)
[2023-10-08 08:26] VITALS: BP 133/60
== END 2023-10-08 08:48 | disposition home or self-care (01) ==
LOC: ORSCSDS 06:47
PROVIDERS: Ophthalmology
PROC: 08RJ3JZ Replacement of Right Lens with Synthetic Substitute, Percutaneous Approach (ICD-10-PCS; principal; 2023-10-08 08:00)
DX: H25.811 Combined forms of age-related cataract, right eye (principal); I10 Essential (primary) hypertension; E78.00 Pure hypercholesterolemia, unspecified; Z79.899 Other long term (current) drug therapy
CPT/HCPCS: J2001; J2250; J3301; J7040; V2632

== ENCOUNTER 2023-10-15 07:05 | Day surgery (SDC) | payer OTHER ==
[~2023-10-15] VITALS: Ht 157.5 cm; Wt 71.0 kg
[~2023-10-15 07:05] MED LIST changes: +CENTRUM SILVER1 EAC2 PO; +Calcium Carbon500 MG; +KRILL OIL; -Lidocaine HCl/Pf 1% 5 ML VIAL ONE; +Lidocaine HCl/Pf 1% 5 ML VIAL XX SCH; +Moxifloxacin HCL 0.5 MG/0.1 ML 0.4MLSYR LEFTEYE SCH; -Moxifloxacin HCL 0.5 MG/0.1 ML 0.4MLSYR RIGHTEYE SCH; +OLMESARTAN-HCT1 EAC5 PO; +OSTEO BI FLEX; +PHENYLEPHRINE\\TROPICAMIDE\\TETRACAINE OPHTHALMIC DILATING SOLN LEFTEYE PRN; -PHENYLEPHRINE\\TROPICAMIDE\\TETRACAINE OPHTHALMIC DILATING SOLN RIGHTEYE PRN; +Povidone-Iodine 450 DROP/30 ML Solution LEFTEYE SCH; -Povidone-Iodine 450 DROP/30 ML Solution RIGHTEYE SCH; +Triamcinolone Inj Susp 40 MG / ML 1ML Vial INJ SCH; -Triamcinolone Inj Susp 40 MG / ML 1ML Vial ONE; +VITAMIN D3
[2023-10-15] MEDS ORDERED: NS 500 ML IV ONE (07:26)
[2023-10-15] MEDS ORDERED: FentaNYL Citrate 50 MCG/ML 2 ML Injection ONE (08:11)
[2023-10-15] MEDS ORDERED: Midazolam HCl 1MG / ML 2ML Vial ONE (08:11)
[2023-10-15 08:54] VITALS: BP 146/59
== END 2023-10-15 09:10 | disposition home or self-care (01) ==
LOC: ORSCSDS 07:05
PROVIDERS: Ophthalmology
PROC: 08RK3JZ Replacement of Left Lens with Synthetic Substitute, Percutaneous Approach (ICD-10-PCS; principal; 2023-10-15 08:30)
DX: H25.812 Combined forms of age-related cataract, left eye (principal); Z96.1 Presence of intraocular lens; I10 Essential (primary) hypertension; E78.00 Pure hypercholesterolemia, unspecified; Z79.899 Other long term (current) drug therapy
CPT/HCPCS: J2250; J3010; J7040; V2632

== ENCOUNTER 2023-11-19 02:12 | Day surgery (SDC) | payer OTHER ==
[~2023-11-19 02:12] MED LIST changes: -Balanced Salt Epinephrine Irrigation Solution 500 mL IR SCH; -Lidocaine HCl/Pf 1% 5 ML VIAL XX SCH; -Moxifloxacin HCL 0.5 MG/0.1 ML 0.4MLSYR LEFTEYE SCH; -NS 500 ML IV ONE; -PHENYLEPHRINE\\TROPICAMIDE\\TETRACAINE OPHTHALMIC DILATING SOLN LEFTEYE PRN; -Povidone-Iodine 450 DROP/30 ML Solution LEFTEYE SCH; -Triamcinolone Inj Susp 40 MG / ML 1ML Vial INJ SCH
== END 2023-11-19 22:52 | disposition home or self-care (01) ==
LOC: WOUND 02:12
DX: S01.00XD Unspecified open wound of scalp, subsequent encounter (principal); L59.8 Other specified disorders of the skin and subcutaneous tissue related to radiation; C44.42 Squamous cell carcinoma of skin of scalp and neck; I10 Essential (primary) hypertension; E03.9 Hypothyroidism, unspecified; X58.XXXD Exposure to other specified factors, subsequent encounter
CPT/HCPCS: G0463

== ENCOUNTER 2023-12-24 02:06 | Day surgery (SDC) | payer OTHER | END 2023-12-24 23:00 | disposition home or self-care (01) | LOC: WOUND 02:06 | DX: C44.42 Squamous cell carcinoma of skin of scalp and neck (principal); L59.8 Other specified disorders of the skin and subcutaneous tissue related to radiation; S01.00XA Unspecified open wound of scalp, initial encounter; X58.XXXA Exposure to other specified factors, initial encounter; I10 Essential (primary) hypertension; E03.9 Hypothyroidism, unspecified | CPT/HCPCS: 87070; 87205; G0463 ==

== ENCOUNTER 2023-12-29 13:29 | Emergency (ER) | payer OTHER ==
[~2023-12-29] VITALS: Ht 154.9 cm; Wt 70.3 kg
[2023-12-29 13:52] VITALS: BP 154/80
[2023-12-29 14:46] LABS: BASOPHILS ABSOLUTE AUTO 0.05 K/mm3 (0.00-0.23); BASOPHILS PERCENT AUTO 1 % (0-2); EOSINOPHILS ABSOLUTE AUTO 0.05 K/mm3 (0.00-0.68); EOSINOPHILS PERCENT AUTO 1 % (0-6); Hemoglobin 11.4 g/dL (11.5-16.0); IMMATURE GRAN ABSOLUTE AUTO 0.06 K/mm3 (0.00-0.10); IMMATURE GRAN PERCENT AUTO 1 % (0-1); LYMPHOCYTES ABSOLUTE AUTO 2.09 K/mm3 (0.84-5.20); LYMPHOCYTES PERCENT AUTO 20 % (21-46); MONOCYTES PERCENT AUTO 9 % (4-13); Mean Corpuscular HGB 33.1 pg (26.0-34.0); Mean Corpuscular HGB Conc 33.5 g/dL (31.5-36.5); Mean Corpuscular Volume 99 fL (80-100); Mean Platelet Volume 8.5 fL (9.1-12.4); NEUTROPHILS ABSOLUTE AUTO 7.48 K/mm3 (1.96-9.15); NEUTROPHILS PERCENT AUTO 70 % (41-73); Platelet Count 344 K/mm3 (150-400); RDW Coefficient Variation 11.4 % (11.7-14.2); RDW Standard Deviation 41.2 fL (35.1-46.3); Red Blood Cell Count 3.44 M/mm3 (3.80-5.20); White Blood Cell Count 10.63 K/mm3 (4.00-11.30)
[2023-12-29 15:03] LABS: Albumin, Blood 3.5 g/dL (3.4-5.0); Albumin/Globulin Ratio 0.7 (0.8-1.8); Bilirubin, Total 0.5 mg/dL (0.1-1.0); Bun/Creatinine Ratio 20.6 (12.0-20.0); Calcium, Blood 9.2 mg/dL (8.5-10.1); Creatinine, Blood 0.92 mg/dL (0.40-1.00); Globulin, Blood 4.8 g/dL (2.2-4.0); Potassium, Blood 3.9 mmol/L (3.5-5.5); Total Protein, Blood 8.3 g/dL (6.4-8.2)
[2023-12-29] MEDS ORDERED: ASPI81CH PO (19:11)
[2023-12-29] MEDS ORDERED: Aspirin 325 MG Tab PO ONE (19:15)
== END 2023-12-29 19:16 | disposition home or self-care (01) ==
LOC: ER 13:29
PROVIDERS: Physician Assistant
DX: G45.9 Transient cerebral ischemic attack, unspecified (principal); I10 Essential (primary) hypertension; Z79.899 Other long term (current) drug therapy; Z88.0 Allergy status to penicillin
CPT/HCPCS: 70450; 70498; 80053; 85025; 93005; 93010; 99284-25; Q9967

== ENCOUNTER 2024-01-14 13:28 | Emergency (ER) | payer OTHER ==
[~2024-01-14] VITALS: Ht 162.6 cm; Wt 69.4 kg
[~2024-01-14 13:28] MED LIST changes: +ASPI81CH PO
[2024-01-14 14:07] LABS: BASOPHILS ABSOLUTE AUTO 0.06 K/mm3 (0.00-0.23); BASOPHILS PERCENT AUTO 0 % (0-2); EOSINOPHILS PERCENT AUTO 0 % (0-6); Hematocrit 29.8 % (33.0-51.0); Hemoglobin 10.4 g/dL (11.5-16.0); IMMATURE GRAN ABSOLUTE AUTO 1.07 K/mm3 (0.00-0.10); IMMATURE GRAN PERCENT AUTO 4 % (0-1); LYMPHOCYTES ABSOLUTE AUTO 1.11 K/mm3 (0.84-5.20); LYMPHOCYTES PERCENT AUTO 4 % (21-46); MONOCYTES ABSOLUTE AUTO 1.66 K/mm3 (0.16-1.47); MONOCYTES PERCENT AUTO 6 % (4-13); Mean Corpuscular HGB 33.2 pg (26.0-34.0); Mean Corpuscular HGB Conc 34.9 g/dL (31.5-36.5); Mean Corpuscular Volume 95 fL (80-100); Mean Platelet Volume 9.1 fL (9.1-12.4); NEUTROPHILS ABSOLUTE AUTO 24.55 K/mm3 (1.96-9.15); NEUTROPHILS PERCENT AUTO 86 % (41-73); Platelet Count 409 K/mm3 (150-400); RDW Standard Deviation 41.9 fL (35.1-46.3); Red Blood Cell Count 3.13 M/mm3 (3.80-5.20); White Blood Cell Count 28.45 K/mm3 (4.00-11.30)
[2024-01-14 14:16] LABS: International Normalized Ratio 1.16; Prothrombin Time Results 12.3 Sec (9.7-11.5)
[2024-01-14 14:18] LABS: Albumin/Globulin Ratio 0.4 (0.8-1.8); Bilirubin, Total 0.8 mg/dL (0.1-1.0); Bun/Creatinine Ratio 24.4 (12.0-20.0); Calcium, Blood 8.8 mg/dL (8.5-10.1); Creatinine, Blood 0.9 mg/dL (0.40-1.00); Globulin, Blood 5.1 g/dL (2.2-4.0); Potassium, Blood 4.1 mmol/L (3.5-5.5); Total Protein, Blood 7.1 g/dL (6.4-8.2)
[2024-01-14] MEDS ORDERED: Cefepime HCl 2,000 MG in NS 100 ML IV ONE (15:25)
[2024-01-14] MEDS ORDERED: Vancomycin HCL 1,500 MG in NS 250 ML IV ONE (15:40)
[2024-01-14] MEDS ORDERED: Heparin Sodium,Porcine/0.5 NS 500 ML IV SCH (16:30)
[2024-01-14 19:30] VITALS: BP 166/70
== END 2024-01-14 19:42 | disposition short-term general hospital (02) ==
LOC: ER 13:28
PROVIDERS: Student in an Organized Health Care Education/Training Program
DX: G08 Intracranial and intraspinal phlebitis and thrombophlebitis (principal); I63.89 Other cerebral infarction; R29.703 NIHSS score 3; L02.811 Cutaneous abscess of head [any part, except face]; L98.499 Non-pressure chronic ulcer of skin of other sites with unspecified severity; D72.829 Elevated white blood cell count, unspecified; E07.9 Disorder of thyroid, unspecified; I10 Essential (primary) hypertension; Z87.39 Personal history of other diseases of the musculoskeletal system and connective tissue; Z88.0 Allergy status to penicillin; Z79.82 Long term (current) use of aspirin; Z79.890 Hormone replacement therapy; Z79.899 Other long term (current) drug therapy; Z98.890 Other specified postprocedural states
CPT/HCPCS: 36415; 70450; 70496; 70498; 80053; 83605; 85025; 85520; 85610; 85730; 93005; 93010; 96365-59; 96366; 96367-59; 96368; 99285-25; J0692; J1644; J3370; J7050; Q9967